=== PATIENT | female | born 1995 | race Caucasian/White ===

== ENCOUNTER → 2018-05-04 11:02 | Outpatient (CLI) | payer BC, SELFPAY ==
[2018-05-04 14:25] LABS: Chlamydia Trachomatis by PCR Negative (Negative); Neisserai gonorrhoeae by PCR Negative (Negative); Probe Check PASS; Sample Adequacy Control PASS; Specimen Processing Control PASS
[2018-05-08 13:34] LABS: HPV Reflexed? NOT INDICATED
== END ==
PROVIDERS: Referring Provider Obstetrics & Gynecology; Visit Provider Obstetrics & Gynecology
DX: Z12.4 Encounter for screening for malignant neoplasm of cervix (principal); Z11.3 Encounter for screening for infections with a predominantly sexual mode of transmission; Z32.01 Encounter for pregnancy test, result positive
CPT/HCPCS: 87491; 87591; 88175; G0145

== ENCOUNTER → 2018-05-22 09:41 | Outpatient (CLI) | payer BC, SELFPAY ==
[2018-05-22 10:35] LABS: Absolute Lymphocyte Count 1.84 X10^3/ul (0.83-4.51); Absolute Neutrophil Count 7.1 X10^3/uL (2.0-7.7); Basophil# 0.04 X10^3/uL; Basophil% 0.4 % (0-1); Eosinophil# 0.05 X10^3/uL; Eosinophils% 0.5 % (0-5); Hematocrit 42.7 % (37-47); Hemoglobin 14.3 g/dl (12.0-15.0); Lymphocyte # 1.84 X10^3/ul (4.0); Mean Corp Hgb Conc 33.5 g/gl (32-36); Mean Corpuscular Hgb 30.5 pg (27.0-32.0); Mean Platelet Vol. 12.5 fl (6.2-12.0); Monocyte# 0.67 X10^3/uL; Monocyte% 6.9 % (0-10); Neutrophil # 7.08 X10^3/uL (2.7-7.7); POSITIVE COUNT NO; POSITIVE DIFFERENTIAL NO; POSITIVE MORPHOLOGY NO; Platelet Count 265 K/mm3 (150-450); RBC Distribution Width CV 12.1 % (11.6-14.6); RBC Distribution Width SD 39.8 fl (35.1-43.9); Red Blood Count 4.69 M/mm3 (4.2-5.4); White Blood Count 9.7 K/mm3 (4.4-11.0)
[2018-05-22 10:36] LABS: Color, Urine Yellow (Yellow); Glucose, Dipstick Normal (Normal); Ketone-Dipstick 5 mg/dl (Negative); Leukocyte Esterase-Dipstick 100 /ul (Negative); Nitrite-Dipstick Negative (Negative); Occult Blood-Urine Negative /ul (Negative); Protein-Dipstick 15 mg/dl (Negative); Specific Gravity, Urine 1.025 (1.002-1.030); Urine Bilirubin Dipstick Negative (Negative); Urine Clarity Sl. Cloudy (Clear); Urine Urobilinogen 4 mg/dl (Normal)
[2018-05-22 10:39] LABS: COTININE Drug Screen Negative (<200 ng/mL)
[2018-05-22 10:48] LABS: Amphetamine Urine VISTA NEGATIVE (<1000 ng/mL); Barbiturate Urine VISTA NEGATIVE (< 200 ng/mL); Benzodiazepine Urine VISTA NEGATIVE (< 200 ng/mL); Cocaine Urine VISTA NEGATIVE (< 300 ng/mL); Ecstacy Urine VISTA NEGATIVE (< 500 ng/mL); Methadone Urine VISTA NEGATIVE (< 300 ng/mL); PCP Urine VISTA NEGATIVE (< 25 ng/mL); THC Urine VISTA NEGATIVE (< 50 ng/mL); Vista UDS pH Range 5
[2018-05-22 10:53] LABS: Thyroid Stim Hormone (TSH) 0.87 uIU/mL (0.358-3.74)
[2018-05-22 11:34] LABS: HIV - WCH Non-Reactive (Nonreactive)
[2018-05-23 08:18] LABS: HEPATITIS B SURFACE AG Negative (Negative); Hep C Antibodies <0.1 s/co ratio (0.0-0.9)
[2018-05-26 02:01] LABS: Prenatal RPR NONREACTIVE (NONREACTIVE)
== END ==
PROVIDERS: Visit Provider Obstetrics & Gynecology
DX: Z34.81 Encounter for supervision of other normal pregnancy, first trimester (principal)
CPT/HCPCS: 36415; 80307; 81002; 84443; 85025; 86703; 86762; 86803; 87340

== ENCOUNTER → 2018-07-25 13:47 | Outpatient (CLI) | payer BC, SELFPAY ==
[2018-07-28 16:09] LABS: AFP MoM Value 1.53 (.); AFP Value-EIA 45.6 ng/mL (.); Comment Report (.); DIA MoM Value 0.91 (.); DIA Value-EIA 124.92 pg/mL (.); DSR (By Age) 1035 (.); DSR (Second Trimester) 10000 (.); Insulin Dep Diabetes No (.); Maternal Age At EDD 24.9 yr (.); hCG MoM 1.11 (.); hCG Value 28230 mIU/mL (.)
[2018-07-31 09:17] LABS: Gestat. Age Based On Ultrasound (.)
--- OUTSIDE RECORDS SUMMARY | 2018-09-26 18:41 | XMS RPT_ITS ---
:1995 Author Organization OHIP Care Team Providers Name Role Phone Tyron Rogers Attending Unavailable Seals, Tyron Attending Unavailable Seals, Tyron Referring Unavailable Seals, Tyron Attending Unavailable Miguel, Carol Ann Tran Attending Unavailable Miguel, Carol Ann L Admitting Unavailable Miguel, Carol Ann L Primary Care Unavailable Miguel, Carol Ann L Admitting Unavailable Miguel, Carol Ann L Attending Unavailable Miguel, Carol Ann L Primary Care Unavailable PROBLEMS PROBLEMS DATE TYPE CONDITION / CODE ATTENDING STATUS SOURCE 07/26/2018 Unknown Z34.82 - Encounter Tyron Rogers Active [facility] for supervision of [facility] other normal Hospital , second Repository trimester / Z34.82(ICD-10) 05/22/2018 Unknown Z34.81 - Encounter Tyron Rogers Active [facility] for supervision of [facility] other normal Hospital , first Repository trimester / Z34.81(ICD-10) 05/04/2018 Unknown Z12.4 - Encounter Tyron Roegrs Active [facility] for screening for Community malignant neoplasm Hospital of cervix / Repository Z12.4(ICD-10) 05/04/2018 Unknown Z11.3 - Encounter Tyron Rogers Active [place] for screening for Community infections with a Hospital predominantly Repository sexual mode of transmission / Z11.3(ICD-10) 05/04/2018 Unknown Z32.01 - Encounter Tyron Rogers Active [facility] for test, Community result positive / Hospital Z32.01(ICD-10) Repository PROCEDURES PROCEDURES No Procedure Records FoundRESULTS RESULTS URINE DRUG SCREEN Collected: 05/22/2018 Status: F Source: ALINA (RAMYTA) 9:[address] [facility] REPOSITORY Order Comment: List of Drugs Taken or Suspected? UNK TYPE CODE TESTS RESULT OUT OF RANGE REFERENCE UNITS LAB L505.0075 TO BE Normal CONFIRMED Result Comment: CONFIRMATORY TESTING FOR ALL POSITIVE URINE DRUG SCREEN RESULTS WILL ONLY BE SENT OUT UPON PHYSICIAN ORDER. VISTA Urine Drug Screen methods provide only preliminary analytical test results. A more specific alternate chemical method must be used in order to obtain a confirmed analytical result. Gas chromatography/mass spectrometery (GC/MS) is the preferred confirmatory method. Clinical consideration and professional judgement should be applied to any drug of abuse test result, particularly when preliminary positive results are used. URINE TCA TESTING MUST BE ORDERED SEPARATELY. USE TEST MNEMONIC: UTCA LAB L505.5005 VISTA UDS PH 5 Normal LAB L505.5015 <1000 ng/mL AMPHETAMINES Normal NEGATIVE LAB L505.5025 < 200 ng/mL BARBITIURATES Normal NEGATIVE LAB L505.5035 < 200 ng/mL BENZODIAZIPINE Normal NEGATIVE LAB L505.5045 < 300 ng/mL COCAINE Normal NEGATIVE LAB L505.5055 < 500 ng/mL ECSTACY Normal NEGATIVE LAB L505.5065 < 300 ng/mL METHADONE Normal NEGATIVE LAB L505.5075 < 300 ng/mL OPIATES Normal NEGATIVE LAB L505.5085 < 25 ng/mL PCP Normal NEGATIVE LAB L505.5095 < 50 ng/mL THC Normal NEGATIVE Performed By: #### L505.5000, L505.6240 #### [facility] [place], [address] NICOTINE URINE DRUG Collected: 05/22/2018 Status: F Source: ALINA SCREEN 9:[address] [facility] REPOSITORY Order Comment: List of Drugs Taken or Suspected? UNK TYPE CODE TESTS RESULT OUT OF RANGE REFERENCE UNITS LAB L505.6250 TO BE Normal CONFIRMED Result Comment: CONFIRMATORY TESTING FOR ALL POSITIVE URINE DRUG SCREEN RESULTS WILL ONLY BE SENT OUT UPON PHYSICIAN ORDER. The results of Urine Drug Screen methods provide only preliminary analytical test results. A more specific alternate chemical method must be used in order to obtain a confirmed analytical result. Gas chromatography/mass spectrometery (GC/MS) is the preferred confirmatory method. Clinical consideration and professional judgement should be applied to any drug of abuse test result, particularly when preliminary positive results are used. LAB L505.6270 <200 ng/mL Normal COT DRG Negative SCREEN Result Comment: Cotinine is the first-stage metabolite of Nicotine. Performed By: #### L505.5000, L505.6240 #### [facility] [address] [place], [place], [address] CBC W/DIFF, AUTOMATED Collected: 05/22/2018 Status: F Source: WAVERLY 9:[address] [facility] REPOSITORY TYPE CODE TESTS RESULT OUT OF RANGE REFERENCE UNITS LAB L100.1000 4.4-11.0 K/mm3 Normal WBC 9.7 LAB L100.1200 4.2-5.4 M/mm3 Normal RBC 4.69 LAB L100.1300 12.0-15.0 g/dl Normal HGB 14.3 LAB L100.1400 37-47 % Normal HCT 42.7 LAB L100.1500 81-99 fL Normal MCV 91.0 LAB L100.1600 27.0-32.0 pg Normal MCH 30.5 LAB L100.1700 32-36 g/gl Normal MCHC 33.5 LAB L100.1810 11.6-14.6 % Normal RDW CV 12.1 LAB L100.1820 35.1-43.9 fl Normal RDW SD 39.8 LAB L100.1900 150-450 K/mm3 Normal PLT 265 LAB L100.2000 6.2-12.0 fl High MPV 12.5 LAB L100.2100 47-70 % High NEUT% 73.0 LAB L100.2200 19-41 % Normal LY% 19.0 LAB L100.2300 0-10 % Normal MONO% 6.9 LAB L100.2400 0-5 % Normal EO% 0.5 LAB L100.2500 0-1 % Normal BASO% 0.4 LAB L100.2550 0.0-0.9 % Normal IM GRAN % 0.200 Result Comment: IG% - Immature Granulocytes (promyelocytes, myelocytes and metamyelocytes) > 1% indicates that a LEFT SHIFT is Present. LAB L100.2620 2.0-7.7 X10 3/uL Normal Absolute Neut 7.1 LAB L100.2720 0.83-4.51 X10 3/ul Normal Absolute Lymph 1.84 Performed By: #### L100.0100 #### [facility] [address] [place], [place], [id number] URINALYSIS, ROUTINE Collected: 05/22/2018 Status: F Source: ALINA (DIPSTICK) 9:[address] [facility] REPOSITORY Order Comment: How was Urine Obtained? Urine, Random TYPE CODE TESTS RESULT OUT OF RANGE REFERENCE UNITS LAB L400.3000 Yellow COLOR Normal Yellow LAB L400.3050 Clear Normal CLARITY Sl. Cloudy LAB L400.3200 Normal mg/dl Normal GLUCOSE, UR Normal LAB L400.3300 Negative mg/dL Normal BILIRUBIN URINE Negative LAB L400.3400 Negative mg/dl High 5 KETONE UR LAB L400.3465 1.002-1.030 Normal SP.GR. DIPSTX 1.025 LAB L400.3550 5.0 - 8.0 pH UR Normal 6.0 LAB L400.3600 Negative mg/dl High PROT 15 DIPSTX LAB L400.3700 Normal mg/dl High 4 UROBILI LAB L400.3750 Negative Normal NITRITE UR Negative LAB L400.3780 Negative /ul Normal OCCULT BLOOD-UR Negative LAB L400.3800 Negative /ul High LEUK ESTERASE 100 Performed By: #### L400.2011 #### [facility] [address] [place], [place], [id number] THYROID STIM HORMONE Collected: 05/22/2018 Status: F Source: ALINA (TSH) 9:[address] [facility] REPOSITORY TYPE CODE TESTS RESULT OUT OF RANGE REFERENCE UNITS LAB L501.9520 0.358-3.74 uIU/mL Normal TSH 0.87 Performed By: #### L501.9520 #### [facility] [address] [place], [place], [id number] RUBELLA IGG Collected: 05/22/2018 Status: F Source: ALINA 9:[address] [facility] REPOSITORY TYPE CODE TESTS RESULT OUT OF RANGE REFERENCE UNITS LAB L509.4000 IU/mL Normal Rubella IgG 11.0 Result Comment: Antibody results Interpretation of Immune Status < 5 IU/ml Presumed Non-immune 5 - < 10 IU/ml Equivocal > or = 10 IU/ml Presumed Immune Performed By: #### L509.4000, L3890.6005 #### [facility] [address] [place], [place], [address] HIV - [facility] Collected: 05/22/2018 Status: F Source: ALINA 9:[address] [facility] REPOSITORY TYPE CODE TESTS RESULT OUT OF RANGE REFERENCE UNITS LAB L3890.6005 Nonreactive Normal HIV - [facility] Non-Reactive Performed By: #### L509.4000, L3890.6005 #### [facility] [address] [place], [place], [address] T AND S-NO Collected: 05/22/2018 Status: F Source: ALINA CHARGE W/PNP 9:[address] [facility] REPOSITORY Order Comment: Reason for Type AND Screen/Red Cells: Surgery? N TYPE CODE TESTS RESULT OUT OF RANGE REFERENCE UNITS LAB B10.0800 A Normal BLOOD POSITIVE TYPE GEL LAB B100.4050 Normal Ab SCREEN NEGATIVE GEL Performed By: #### B100.7550 #### [facility] [address] [facility]. [place], [place], [address] HEPATITIS B SURFACE Collected: 05/22/2018 Status: F Source: ALINA AG 9:[address] [facility] REPOSITORY TYPE CODE TESTS RESULT OUT OF RANGE REFERENCE UNITS LAB L3100.0400 Negative Normal HB Negative SURF AG Result Comment: Performed at: - [facility] [id number] Tripe Cooker: Franklin Carrera PhD, Phone: [phone] Performed By: #### L3100.0390, L3100.0625 #### [facility] (refer to report for specific site) refer to report for address and phone number HEPATITIS C ANTIBODIES Collected: 05/22/2018 Status: F Source: ALINA 9:[address] [facility] REPOSITORY TYPE CODE TESTS RESULT OUT OF RANGE REFERENCE UNITS LAB L3100.0650 0.0-0.9 s/co ratio Normal HEP C AB <0.1 Result Comment: Negative: < 0.8 Indeterminate: 0.8 - 0.9 Positive: > 0.9 The CDC recommends that a positive HCV antibody result be followed up with a HCV Nucleic Acid Amplification test (795595). Performed By: #### L3100.0390, L3100.0625 #### [facility] (refer to report for specific site) refer to report for address and phone number RPR Collected: 05/22/2018 Status: F Source: WAVERLY 9:[address] [facility] REPOSITORY TYPE CODE TESTS RESULT OUT OF REFERENCE UNITS RANGE LAB L700.5100 NONREACTIVE Normal RPR NONREACTIVE Performed By: #### L700.5100 #### [facility] [address] [place], [address] CT/NG [facility] BY PCR Collected: 05/04/2018 Status: F Source: WAVERLY 9:[address] [facility] REPOSITORY Order Comment: CYTOLOGY INFORMATION: - CLINICAL INFORMATION: - DATE LMP/MENOPAUSE: 03-22-18 LMP - COLLECTION VIAL: Thin Prep Vial - FELT PAD CUTTER SOURCE: CERVICAL/ENDOCERVICAL - COLLECTION TECHNIQUE: BRUSH/SPATULA TYPE CODE TESTS RESULT OUT OF RANGE REFERENCE UNITS LAB L8200.2100 Negative Normal Chlam Negative Trac PCR LAB L8200.2200 Negative Normal NG by Negative PCR Performed By: #### L8200.2000 #### [facility] [address] [facility] [place], [address] PAP I-G W/RFX HRHPV Collected: 05/04/2018 Status: F Source: WAVERLY 9:[address] [facility] REPOSITORY Order Comment: CYTOLOGY INFORMATION: - CLINICAL INFORMATION: - DATE LMP/MENOPAUSE: 03-22-18 LMP - COLLECTION VIAL: Thin Prep Vial - FELT PAD CUTTER SOURCE: CERVICAL/ENDOCERVICAL - COLLECTION TECHNIQUE: BRUSH/SPATULA Specimen Comment: [id number] Specimen Comment: Source.............Cervix;Endocervix Specimen Comment: LMP / Prev Treat...PMK=[id number] Specimen Comment: No. of containers..01 ThinPrep Vial TYPE CODE TESTS RESULT OUT OF RANGE REFERENCE UNITS LAB L7400.0800 . Normal DIAGN Comment Result Comment: NEGATIVE FOR INTRAEPITHELIAL LESION AND MALIGNANCY. LAB L7400.0900 . Normal ADEQ Comment Result Comment: Satisfactory for evaluation. Endocervical and/or squamous metaplastic cells (endocervical component) are present. LAB L7400.1400 . Normal PERFORM Comment Result Comment: Kushal Briseno, Sorting And Folding Supervisor (ASCP) LAB L7400.2575 . Normal TEST METHOD Comment Result Comment: This liquid based ThinPrep(R) pap test was screened with the use of an image guided system. LAB L7400.2600 . Normal . COMM LAB L7400.2700 . Normal PAPSMR Comment Result Comment: The Pap smear is a screening test designed to aid in the detection of premalignant and malignant conditions of the uterine cervix. It is not a diagnostic procedure and should not be used as the sole means of detecting cervical cancer. Both false-positive and false-negative reports do occur. LAB L7400.2800 . Normal HPV RFLX Comment Result Comment: The HPV DNA reflex criteria were not met with this specimen result therefore, no HPV testing was performed. Performed at: [address] [id number] Tripe Cooker: Crystal Sinha MD, Phone: [phone] Performed By: #### L7400.0350 #### [facility] (refer to report for specific site) refer to report for address and phone number Observed: 10/17/2017 Status: F Source: MUSLIM C URINE 11:44 AM [facility] REPOSITORY Final Report: Normal skin flor isolated Performed By: #### [id number] #### [facility] Subsection [address] [place] [address] ALLERGIES ALLERGIES DATE TYPE / CODE NAME / CODE REACTION SEVERITY SOURCE Drug/[id number] No Known Zoroastrianism 003([facility]) Allergies System Repository ENCOUNTERS ENCOUNTERS ADMIT/DISCHARGE ACCOUNT NUMBER ADMITTING ENCOUNTER LOCATION SOURCE CLASS 07/25/2018 [id number] [facility] ding:LAB[facility] Repository 05/22/2018 [id number] [facility] ding:WOBLAB Repository 05/04/2018 [id number] [facility] ding:LABSPEC Repository 10/17/2017/10/18/19 [id number] Carol Ann [facility] [address] [facility] ding:[facility] BANEY Repository 10/17/2017/10/18/19 [id number] Carol Ann Rivera [facility] [address] [facility] ding:Dot Repository racRoom: Room 2 PAYERS PAYERS ENCOUNTER GUARANTOR PAYER SUBSCRIBER SOURCE 07/25/2018 DORIS Merlos Primary DORIS Merlos [place] [id number] [place] Insurance:ANTHEMPolic [place] Number: [id number] [address]Zzx: (419) [id number] Repository [phone] () Date:6533-01-98[address] [address]CO: 07/25/2018 Secondary NOT GIVENUNK [place] Insurance:SELF [facility]Y [facility]: Effective Repository Date:2018-07-25 05/22/2018 DORIS Merlos Primary DORIS Merlos [place] [id number] [place] Insurance:ANTHEMPolic [place]NARDDOB: [place] Number: [id number] [id number]: (419) [id number] Repository [phone] () Date:3417-88-15IC [address], [place] [address]PO: 05/22/2018 Secondary NOT GIVENUNK [place] Insurance:SELF PAY [facility] Number: Effective Repository Date:2018-05-22 05/04/2018 DORIS Merlos Primary DORIS Merlos [place] [id number] [place] Insurance:ANTHEMPolic [place]NARDDOB: [place] Number: [id number] [facility] [id number]: . (HP) [id number] Repository Date:5884-39-62[address], [place] [address]EX: 05/04/2018 Secondary NOT GIVENUNK [place] Insurance:SELF PAY [facility] Number: Effective Repository Date:2018-05-04 10/17/2017 DORIS Merlos Primary DORIS Venegas MAYNARDDOB: Insurance:ANTHEMPolic MAYNARDDOB: [facility] y Number: Effective [id number] System [place] Date:2017-10-17 - [place] Repository [place], [place] [id number] [place], [place] [id number]: Name:Juventino Grant [id number]: [address], [place] (HP) [id number]: [phone] (HP) [phone] (WP) 10/17/2017 DORIS M Primary [facility] MAYNARDDOB: Insurance:1500 MAYNARDDOB: [facility] ANTHEMPolicy Number: [id number] [facility] Effective [place]AL[place] Repository [place], [place] Date:2017-10-17 - [place], [place] [id number]: [id number]: Name:CD:[id number] O () [address], [place] ()Tel: [phone]: (WP) [phone]
== END ==
PROVIDERS: Visit Provider Obstetrics & Gynecology
DX: Z34.82 Encounter for supervision of other normal pregnancy, second trimester (principal)
CPT/HCPCS: 82105; 82677; 84702; 86336

== ENCOUNTER → 2018-10-13 08:57 | Outpatient (CLI) | payer BC, SELFPAY ==
[2018-10-13 11:05] LABS: Hematocrit 37.4 % (37-47); Hemoglobin 12.6 g/dl (12.0-15.0); Mean Corp Hgb Conc 33.7 g/gl (32-36); Mean Corpuscular Hgb 31.3 pg (27.0-32.0); Mean Platelet Vol. 11.6 fl (6.2-12.0); Platelet Count 268 K/mm3 (150-450); RBC Distribution Width CV 12.6 % (11.6-14.6); RBC Distribution Width SD 42.7 fl (35.1-43.9); Red Blood Count 4.02 M/mm3 (4.2-5.4); White Blood Count 13.7 K/mm3 (4.4-11.0)
[2018-10-13 11:07] LABS: Scan Indicated on CBC? Y/N NO
[2018-10-13 11:14] LABS: Glucose Challenge Gest 1H 50g 127 mg/dL (70-140)
== END ==
PROVIDERS: Visit Provider Obstetrics & Gynecology
DX: Z34.83 Encounter for supervision of other normal pregnancy, third trimester (principal)
CPT/HCPCS: 36415; 82950; 85027

== ENCOUNTER → 2018-12-01 15:00 | Outpatient (CLI) | payer BC, SELFPAY | PROVIDERS: Visit Provider Obstetrics & Gynecology | DX: Z36.85 Encounter for antenatal screening for Streptococcus B (principal) | CPT/HCPCS: 87077; 87081; 87186 ==

== ENCOUNTER 2018-12-28 09:58 | Inpatient (IN) | payer BC, SELFPAY ==
[2018-12-28] VITALS (16 sets, daily range): BP systolic 101–129; BP diastolic 57–80; PULSE 66–96; RESP 12–19; TEMP 36.1–36.7; O2SAT 96–100; BMI 39.9
--- NOTE | 2018-12-28 07:28 | PCM.OPRPT ---
Problem List (1) Breech presentation Status: Chronic Qualifiers: Fetus number: single or unspecified fetus Qualified Code(s): O32.1XX0 - Maternal care for breech presentation, not applicable or unspecified Report of Operation Date of Procedure: 12/28/18 Pre-Operative Diagnosis: Persistent Breech Presentation Post-Operative Diagnosis: Same Surgery/Procedure Performed:: Primary Low Transverse Section Description of Surgical Findings:: Normal appearing uterus, ovaries, and fallopian tubes. Live female in complete breech presentation. Apgars 9/9. Normal appearing placenta with centrally located three vessel cord. inclusion special educator: Mayra Saleem Type of Anesthesia:: Spinal Anesthesiologist: Riley Alarcon Special Medications: none Specimen's removed: none Drains: lopez Estimated Blood Loss (mL): 400cc Fluids Replaced: 1500cc LR Description of Procedure: Arabella was scanned with US prior to taking to the OR which revealed persistent breech presentation. She was taken to the OR with IV running. She was given two grams of Ancef intravenously for surgical prophylaxis. Spinal anesthesia was induced without complication. She was then prepped and draped in the supine position with a leftward tilt. A lopez catheter was placed. Once anesthesia was deemed adequate, a pfannensteil skin incision was made with the scalpel approximately 2 cm above the symphysis pubis. The unserlying subcutaneous tissue was dissected down to the level of the fascia using blunt and sharp dissection. The fascia was then incised laterally in the midline and this incision was extended bilaterally using the Perdue scissors. The upper portion of the fascial defect was then grasped with two Krista clamps, elevated and the rectus muscles dissected foff with sharp and blunt dissection. In a similar fashion the rectus muscles were dissected off the lower fascial defect. The rectus muscles were then in the midline, the peritoneum identified and entered sharply. The peritoneal defect was enlarged using blunt retraction. A bladder blade was placed. A bladder flap was created and the bladder blade replaced. The lower anterior uterine segment was then incised with the scalpel in a transverse fashion. Once the cavity was entered the uterine defect was enlarged with blunt lateral and superior traction. The amniotic fluid was noted to be clear. The baby was then delivered from breech presentation without difficulty. The baby's mouth was then suctioned with a bulb suction and the baby stimulated and dried. Delayed cord clamping was employed. The cord was then clamped and cut and the baby handed off to the waiting nurse for evaluation. The placenta was then delivered manually and the uterus exteriorized. The uterine defect was then closed in two layers with #1 Vicryl suture. The posterior cul de sac and gutters were cleared of all clot and fluid. The uterus was returned to the abdomen. Hemostasis was assured. The peritoneum was then closed with a running stitch of 2-0 Vicryl. The rectus muscles were reapproximated with interrupted sutures of 0-Vicryl The fascia was closed with a running stitch of #1 Stratofix suture. The subcutaneous tissue was closed with 2-0 Vicryl. The skin was closed with a subcuticular stitch of 4-0 Monocryl. Sponge, lap, needle, and instrument counts were correct. She was taken to her recovery room in stable condition. Grafts/Implants Used: none - Complications none - Admit VTE Documentation VTE Present on Admission: No VTE Mechan Device Prophylaxis: SCD's VTE Pharm Prophylaxis ordered?: No Delivery Classification: Scheduled Final SHANKAR: 01/01/19 Final SHANKAR Source: US <20 weeks Gestational age: 39 Weeks and 3 Days Indications for : Breech Description of Procedure: see operative note Amniotic Membrane Rupture Type: Artificial Amniotic Fluid Description: Clear Placenta Disposition: [facility] Specimen(s) sent to pathology: none Drain: Lopez to straight drain Cord Entanglement: None Nuchal Cord Compression: Without compression Cord Vessel Description: 3 Vessels Esitmated Blood Loss (ml): 400cc Infant Gender: Female (1 minute): 9 (5 minute): 9 Delayed cord clamping: Yes Pre-op Antibiotic Given: Ancef 2 grams IV x1 Pt instructed on risks of surgery: Bleeding, Infection, Injury to surrounding structure(s) including bowel and bladder Complications: None - Admit VTE Documentation VTE Present on Admission: No VTE Mechan Device Prophylaxis: SCD's VTE Pharm Prophylaxis ordered?: No
[2018-12-28] MEDS: Lactated Ringers 1,000 ML 999 ML IV (10:20)
[2018-12-28 10:44] LABS: Absolute Lymphocyte Count 1.56 X10^3/ul (0.83-4.51); Absolute Neutrophil Count 6.8 X10^3/uL (2.0-7.7); Basophil# 0.02 X10^3/uL; Basophil% 0.2 % (0-1); Eosinophil# 0.03 X10^3/uL; Eosinophils% 0.3 % (0-5); Hematocrit 35.8 % (37-47); Hemoglobin 12.1 g/dl (12.0-15.0); Lymphocyte # 1.56 X10^3/ul (4.0); Lymphocyte % 16.8 % (19-41); Mean Corp Hgb Conc 33.8 g/gl (32-36); Mean Corpuscular Hgb 29.7 pg (27.0-32.0); Mean Corpuscular Volume 87.7 fL (81-99); Monocyte# 0.81 X10^3/uL; Monocyte% 8.7 % (0-10); Neutrophil # 6.83 X10^3/uL (2.7-7.7); Neutrophil % 73.7 % (47-70); POSITIVE COUNT NO; POSITIVE DIFFERENTIAL NO; POSITIVE MORPHOLOGY NO; Platelet Count 144 K/mm3 (150-450); RBC Distribution Width CV 12.6 % (11.6-14.6); RBC Distribution Width SD 39.8 fl (35.1-43.9); Red Blood Count 4.08 M/mm3 (4.2-5.4); White Blood Count 9.3 K/mm3 (4.4-11.0)
[2018-12-28] MEDS: Sodium Citrate/Citric Acid 30 ML UDC PO (11:28)
[2018-12-28] MEDS: Lactated Ringers 1,000 ML 150 ML IV (11:28)
--- NOTE | 2018-12-28 12:18 | DCINST_ITS ---
Discharge Diet: No Restrictions Discharge Activity: Return to Normal Activity, May Not Drive, May not drive while taking narcotic pain medications., May Shower Return to work on:: 02/27/19 May shower in (days): 0 May resume sexual activity in: 4-6 weeks Call your doctor if your incision/area has: Sudden Increased Bleeding, Increased Pain/ Swelling, Increased Redness, Foul Smelling Discharge, Swelling at the incision site Call your doctor if you observe: Fever of 101 or Higher, Inability to urinate, Inability to have a bowel movement, Using more than one pad per hour, Shortness of breath, Chest pain, Calf discomfort, Uncontrolled pain Remove Dressing in (days):: 3 Cleanse incision/area with: Soap & Water Additional Instructions: If you experience any of the following, contact your healthcare provider. * Bleeding that soaks a pad every hour for 2 hours * Fever 100.4 or higher * Unrelieved incision or abdominal pain * Swelling, redness, discharge or bleeding from your incision or episiotomy site * Your incision begins to separate * Problems urinating (including inability to urinate or burning while uri nating). * Visual changes * Severe headache * Flu-like symptoms * Pain or redness in one of both of your breasts * Pain, warmth, tenderness or swelling in your legs, especially the calf area * Frequent nausea and vomiting * Symptoms of depression or anxiety If you experience any of the following, call 911 or go to the nearest Emergency Room. * Chest pain * Problems breathing * Seizure activity * Partial or complete paralysis of a body part, slurred speech, weakness or drooping of the face, or a sudden inability to walk or hold your balance Allergies/Adverse Reactions: Allergies No Known Allergies Allergy (Verified 12/28/18 10:10) Medications to take at Discharge Ibuprofen [Motrin] 600 mg PO Q6H PRN PRN #30 tab 12/28/18 Oxycodone [Oxyir] 5 - 10 mg PO Q4H PRN PRN 7 Days #30 tab 12/28/18 Valacyclovir HCl [Valacyclovir] 500 mg PO DAILY 12/28/18 The following prescriptions were given: Ibuprofen [Motrin] 600 mg PO Q6H PRN PRN #30 tab PRN Reason: pain or cramping Prescription Printed Oxycodone [Oxyir] 5 - 10 mg PO Q4H PRN PRN 7 Days #30 tab PRN Reason: Mod-Severe Pain (-04/12) Prescription Printed Follow-Up: Call to make an appointment with your doctor for an incision check in 1-2 weeks. You will also need a 6 week post- follow up appointment. Test results from this visit will be discussed in further detail at your follow- up appointment, if applicable. Please Follow Up With: Tyron Rogers MD When: one to two weeks Primary Care Physician: Lopez Garcia MD [Primary Care Provider] - Proposed Discharge Date: 12/31/18
[2018-12-28] MEDS: Cefazolin 2 GM in 0.9% Normal Saline 100 ML IV (13:56)
[2018-12-28] MEDS: Oxytocin 30 units/NS 500 ml 30 UNITS/500 ML IV.SOLN 167 UNITS IV (14:05)
[2018-12-28] MEDS: Lactated Ringers 1,000 ML 100 ML IV ×2 (15:19→18:01)
[2018-12-28] MEDS: Ketorolac 15 MG/ML Vial 30 MG IV ×2 (15:45→21:55)
[2018-12-28] MEDS: Acetaminophen 500 MG Tablet 1000 MG PO (18:00)
--- NOTE | 2018-12-28 21:20 | NURSING ---
2115 Assisted pt out of bed to chair. Pt tolerated well, c/o mild lightheadedness but states ok to stay in chair at this time.
[2018-12-28] MEDS: Cefazolin 1 GM/50 ML BAG IV (21:56)
[2018-12-29] VITALS (10 sets, daily range): BP systolic 113–121; BP diastolic 57–67; PULSE 71–89; RESP 16–18; TEMP 36.1–36.8; O2SAT 97–99
[2018-12-29] MEDS: Ketorolac 15 MG/ML Vial 30 MG IV ×3 (03:49→15:54)
[2018-12-29] MEDS: Lactated Ringers 1,000 ML 100 ML IV (05:16)
[2018-12-29] MEDS: Cefazolin 1 GM/50 ML BAG IV (05:17)
[2018-12-29 05:36] LABS: Hematocrit 30.7 % (37-47); Hemoglobin 10.2 g/dl (12.0-15.0); Mean Corp Hgb Conc 33.2 g/gl (32-36); Mean Corpuscular Hgb 29.7 pg (27.0-32.0); Mean Corpuscular Volume 89.5 fL (81-99); Mean Platelet Vol. 12.9 fl (6.2-12.0); Platelet Count 126 K/mm3 (150-450); RBC Distribution Width CV 12.6 % (11.6-14.6); RBC Distribution Width SD 39.7 fl (35.1-43.9); Red Blood Count 3.43 M/mm3 (4.2-5.4); White Blood Count 9.2 K/mm3 (4.4-11.0)
[2018-12-29 05:38] LABS: Scan Indicated on CBC? Y/N NO
--- NOTE | 2018-12-29 07:23 | PN.OBGYN_ITS ---
Subjective: POD#1 Primary C/S breech at term Doing OK Pain control adequate. Baby is nursing well. no concerns voiced Objective: resting with eyes closed, responds to voice - Physical Exam General: Alert, Oriented x3, Cooperative, No apparent distress HEENT: Atraumatic, EOMI Neck: Supple Abdomen: Soft - fundus firm tender c/w postop status and at 2 cm inferior to umbilicus Skin: Incision - Mepilex CDI. No shadow drainage noted. Psych/Mental Status: Normal Affect Vital Signs Temp Pulse Resp BP Pulse Ox 97.2 F L 71 18 114/57 L 97 12/29/18 04:00 12/29/18 05:45 12/29/18 05:45 12/29/18 04:00 12/29/18 05:45 Oxygen Delivery Method Room Air Weight: 105.6 kg Body Mass Index (BMI) 39.9 Intake and Output for Last 24 Hours 12/27/18 12/28/18 12/29/18 23:59 23:59 23:59 Intake Total 3350 / 3350 2026 Output Total 500 / 500 300 / 300 Balance 2850 / 2850 1727 / 1727 Laboratory Tests Past 24 Hrs 12/28/18 12/28/18 12/29/18 10:20 10:20 05:24 WBC 9.3 9.2 RBC 4.08 L 3.43 L Hgb 12.1 10.2 L Hct 35.8 L 30.7 L MCV 87.7 89.5 MCH 29.7 29.7 MCHC 33.8 33.2 RDW 12.6 12.6 RDW Differential 39.8 39.7 Plt Count 144 L 126 L MPV 13.0 H 12.9 H Immature Gran % (Auto) 0.300 Neut % (Auto) 73.7 H Lymph % (Auto) 16.8 L [place] % (Auto) 8.7 Eos % (Auto) 0.3 Baso % (Auto) 0.2 Absolute Neuts (auto) 6.8 Absolute Lymphs (auto) 1.56 Total Counted Not Reportable Blood Type A POSITIVE Antibody Screen NEGATIVE Medical Necessity - Tobacco Use Smoking Status: Former smoker Assessment/Plan POD#1 Primary C/S Breech 39 wk EGA Stable postop. Inc diet and activity as tolerated. D/C lopez for voiding trial. Begin po meds. S/L IV for continued toradol. Continue routine postop care.
[2018-12-29] MEDS: Senna/Docusate Sodium 1 Tablet PO (10:00)
[2018-12-29] MEDS: 0.9% Saline Lock 10 ML Syringe IV ×2 (10:00→15:53)
[2018-12-29] MEDS: Acetaminophen 500 MG Tablet 1000 MG PO (20:56)
[2018-12-30] MEDS: Ibuprofen 600 MG Tablet PO ×2 (00:43→12:22)
[2018-12-30 02:06] VITALS: BP 106/67; PULSE 76; RESP 16; TEMP 36.7; O2SAT 96
[2018-12-30] MEDS: oxyCODONE 5 MG Tablet PO ×2 (02:11→08:45)
[2018-12-30] MEDS: Senna/Docusate Sodium 1 Tablet PO ×2 (02:12→08:45)
[2018-12-30 08:00] VITALS: BP 131/79; PULSE 81; RESP 14; TEMP 36.7
--- NOTE | 2018-12-30 10:09 | PCM.PN.OB ---
Subjective: Patient without complaints. Tolerating diet well. Positive flatus. Wants to go home later today. - Physical Exam Vital Signs Temp Pulse Resp BP Pulse Ox 98.0 F 81 14 131/79 H 96 12/30/18 08:00 12/30/18 08:00 12/30/18 08:00 12/30/18 08:00 12/30/18 02:06 Oxygen Delivery Method Room Air Weight: 232 lb 12.93 oz Body Mass Index (BMI) 39.9 Intake and Output for Last 24 Hours 12/28/18 12/29/18 12/30/18 23:59 23:59 23:59 Intake Total 3350 / 3350 2027 / 7 Output Total 500 / 500 2300 / 2300 Balance 2850 / 2850 -273 / -273 Wound is clean, dry, intact. Covered with Mepilex dressing. Medical Necessity - Tobacco Use Smoking Status: Former smoker Assessment/Plan Doing well postoperative day #2 status post section. Will release to home with routine instructions.
--- NOTE | 2018-12-30 12:50 | CASEMGMT ---
Social Work Brief Assessment - Labor and Delivery Unit Refer documentation below for further details. Date of Referral/Notification: 12/29/18 Time of Referral: 16:02 Reason for Referral: PHQ 9 TRIGGERED Date of Intervention: 12/30/18 Time of Intervention: 12:50P Informant: Medical record and mother of baby (MOB) Assessment: UPDATED BY NURSING, PHQ 9 TRIGGERED REFERRAL. MET WITH MOB AND FOB IN ROOM. INTRODUCED ROLE AND REASON FOR REFERRAL. MOB BREAST FEEDING DURING ASSESSMENT. OFFERED TO COME BACK AFTER FEEDING AND MOB DECLINED AND WISHED TO COMPLETE ASSESSMENT WHILE FEEDING. MOB REPORTS HAS ALL NEEDS MET FOR BABY ESTHER HERRERA. MOB DENIES ANY HX OF MENTAL HEALTH AND STATES FEELINGS ARE FROM HORMONES. EMOTIONAL SUPPORT AND EDUCATION PROVIDED. REVIEWED SIGNS AND SYMPTOMS OF POST DEPRESSION. MOB OPEN TO MORE INFORMATION. EDUCATIONAL INFORMATION GIVEN. MOB DENIES ANY HX OF SUBSTANCE ABUSE. FOB AND MOB DENY ANY FURTHER NEEDS OR QUESTIONS. NURSE UPDATED ON ASSESSMENT. Plan: HOME. PROVIDED MOB WITH EDUCATION ON PPD AND RESOURCES FOR MENTAL HEALTH FOLLOW UP IF NEEDED. No further needs requested or indicated. -Jackie Oliver, HOME HEALTH CARE COORDINATOR, [employer]
[2018-12-30 14:15] VITALS: BP 120/67; PULSE 78; RESP 16; TEMP 36.5
== END 2018-12-30 14:05 | disposition home or self-care (01) | DRG 787 ==
PROVIDERS: Admitting Provider Obstetrics & Gynecology; Family Provider Family Medicine; PCP Family Medicine; Referring Provider Obstetrics & Gynecology; Visit Provider Obstetrics & Gynecology
PROC: 10D00Z1 Extraction of Products of Conception, Low, Open Approach (ICD-10-PCS; CPT 59514; principal; 2018-12-28 11:45)
DX: O32.1XX0 Maternal care for breech presentation, not applicable or unspecified (principal); O98.513 Other viral diseases complicating pregnancy, third trimester; Z37.0 Single live birth; B00.9 Herpesviral infection, unspecified; Z3A.39 39 weeks gestation of pregnancy; Z87.891 Personal history of nicotine dependence
CPT/HCPCS: 85025; 85027; 86850; 86900; 99218; J7120; A4216; G0378; J2405

== ENCOUNTER → 2020-08-12 13:28 | Outpatient (CLI) | payer BC, SELFPAY ==
[2018-12-28 10:09] VITALS: BMI 39.9
[2020-08-12 14:40] LABS: T4 Free Direct 1.35 ng/dL (0.76-1.46); Thyroid Stim Hormone (TSH) 0.97 uIU/mL (0.358-3.74)
== END ==
PROVIDERS: PCP Family Medicine; Visit Provider Obstetrics & Gynecology
DX: L65.9 Nonscarring hair loss, unspecified (principal)
CPT/HCPCS: 36415; 84439; 84443